=== PATIENT | female | born 1955 | race Caucasian/White ===

== ENCOUNTER 2016-09-25 16:35 | Outpatient (CLI) | payer OTHER ==
[2016-09-25] MEDS ORDERED: GADOBUTROL 7.5 MMOL/7.5 ML VIAL IVP ONE (18:35)
== END 2016-09-25 16:36 | disposition home or self-care (01) ==
DX: R10.11 Right upper quadrant pain (principal)
CPT/HCPCS: 74183; A9585

== ENCOUNTER 2017-01-24 21:03 | Inpatient (IN) | payer OTHER ==
[2017-01-24] MEDS ORDERED: ONDANSETRON 4 MG/2 ML VIAL IVP STA (21:21)
[2017-01-24] MEDS ORDERED: HYDROmorphone 1 MG/ML CARPUJECT IVP STA ×2 (21:21→23:13)
[2017-01-24] MEDS ORDERED: SODIUM CHLORIDE 0.9% 1,000 ML IV ONE (21:21)
--- NOTE | 2017-01-24 21:24 | ED Physician Documentation ---
History of Present Illness - Stated complaint Stated Complaint: CHEST PX - Chief complaint Chief Complaint: Cardiac - Additonal information Additional information: hx from pt 61 female upper abd / chest pain since noon severe feels hot + SOA 2/2 pain nauseated fhx CAD (Dad 50s) and high chol - no HTN DM smoker also has known gallstones dx by MRI last spring no leg swelling meds are HRT, nexium, something for her bladder Review of Systems Constitutional: denies: Fever, Chills, Sweats Cardiac: reports: Chest pain / pressure Respiratory: reports: Dyspnea. denies: Cough GI: reports: Abdominal Pain, Nausea. denies: Vomiting Musculoskeletal: denies: Extremity swelling Endocrine: denies: Easy bruising / bleeding Immunocompromised: denies: Immunocompromised PD PAST MEDICAL HISTORY - Past Medical History Past Medical History: No - Past Surgical History Past Surgical History: Yes /[employer]ELOPMENT: Hysterectomy HEENT: Tonsil/Adenoidectomy - Allergies Allergies/Adverse Reactions: Allergies Allergy/AdvReac Type Severity Reaction Status Date / Time No Known Drug Allergies Allergy Verified 01/24/17 21:14 - Social History Does the pt smoke?: No Smoking Status: Never smoker Does the pt drink ETOH?: No Does the pt have substance abuse?: No - Immunizations Immunizations are current?: Yes - POLST Patient has POLST: No PD ED PE NORMAL - Vitals Vital signs reviewed: Yes - General General: Alert and oriented X 3 - HEENT HEENT: PERRL - Neck Neck: Supple, no meningeal sign - Cardiac Cardiac: RRR - Respiratory Respiratory: No respiratory distress, Clear bilaterally - Abdomen Abdomen: Other (severe ruq TTP with + murphys) - Derm Derm: Normal color - Extremities Extremities: No deformity, No edema, No calf tenderness / cord - Neuro Neuro: Alert and oriented X 3 Results - Vitals Vitals: Vital Signs - 24 hr 01/24/17 21:11 Temperature 36.2 C L Heart Rate 69 Respiratory 24 Rate Blood Pressure 143/99 H O2 Saturation 99 Oxygen O2 Source Room air - EKG (time done) 2113 Rate: Rate (enter#) (68) Rhythm: NSR Cameron: Normal Intervals: Normal KS Ischemia: Non specific changes (diffusely flattened T waves) - Rads (name of study) CXR Radiology: See rad report (NACPD) PD MEDICAL DECISION MAKING - ED course ED course: afebrile, nl WBC, nl LFTs but pain for about 12 hr now and wall thickening on sono spoke to surgeon Dr Pang will will admit to obs labs wont import into my note but were reviewed nl WBC nl LFT neg trop Departure - Departure Disposition: ED Place in Observation Clinical Impression: Cholecystitis Condition: Good
[2017-01-24 21:27] LABS: BASOPHILS # (AUTO) 0.1 10^3/uL (0.0-0.1); BASOPHILS % (AUTO) 0.7 %; EOSINOPHILS # (AUTO) 0.1 10^3/uL (0.0-0.7); EOSINOPHILS % (AUTO) 1.6 %; HCT - HEMATOCRIT 42.5 % (37.0-47.0); HGB - HEMOGLOBIN 14.1 g/dL (12.0-16.0); LYMPHOCYTES # (AUTO) 4.5 10^3/uL (1.5-3.5); LYMPHOCYTES % (AUTO) 49.1 %; MEAN CORPUSCULAR HEMOGLOBIN 28.7 pg (27.0-31.0); MEAN CORPUSCULAR HGB CONC 33.3 g/dL (32.0-36.0); MEAN CORPUSCULAR VOLUME 86.2 fL (81.0-99.0); MEAN PLATELET VOLUME 7.3 fL (7.9-10.8); MONOCYTES # (AUTO) 0.6 10^3/uL (0.0-1.0); MONOCYTES % (AUTO) 6.5 %; NEUTROPHILS # (AUTO) 3.9 10^3/uL (1.5-6.6); NEUTROPHILS % (AUTO) 42.1 %; NUCLEATED RED BLOOD CELLS AUTO 0.1 /100WBC; RED BLOOD COUNT 4.93 10^6/uL (4.20-5.40); RED CELL DISTRIBUTION WIDTH 13.6 % (12.0-15.0); UNCORRECTED WHITE BLOOD COUNT 9.3 x10^3/uL; WHITE BLOOD COUNT 9.3 x10^3/uL (4.8-10.8)
[2017-01-24] MEDS ORDERED: HYDROmorphone 1 MG/ML CARPUJECT ONE ×2 (21:32→23:12)
[2017-01-24] MEDS ORDERED: ONDANSETRON 4 MG/2 ML VIAL ONE (21:32)
[2017-01-24 21:37] LABS: ALBUMIN/GLOBULIN RATIO 1.2 (1.0-2.2); BILIRUBIN,TOTAL 0.3 mg/dL (0.2-1.0); CALCIUM 9.5 mg/dL (8.5-10.3); POTASSIUM 3.7 mmol/L (3.5-5.0); TOTAL PROTEIN 7.8 g/dL (6.7-8.2)
--- NOTE | 2017-01-24 22:22 | XRAY Preliminary Report ---
Exam: XR Chest 1 View IMPRESSION: Normal single view chest. [facility] SITE ID: [id number]
--- NOTE | 2017-01-24 22:24 | XRAY Report ---
EXAM: CHEST RADIOGRAPHY EXAM DATE: 01/24/2017 09:56 PM. CLINICAL HISTORY: Chest pain. COMPARISON: None. TECHNIQUE: 1 view. FINDINGS: Lungs/Pleura: No focal opacities evident. No pleural effusion. No pneumothorax. Mediastinum: Within exam limitations, cardiomediastinal contour is normal. Other: None. IMPRESSION: Normal single view chest. [facility] Referring Provider Line: [phone] SITE ID: [id number]
--- NOTE | 2017-01-24 23:13 | Ultrasound Preliminary Report ---
Exam: US Abdomen Limited IMPRESSION: 1. Multiple mobile stones in the gallbladder with borderline wall thickness and focal tenderness. Ear ly cholecystitis is not entirely excluded. 2. No biliary dilatation seen. 3. Possible fatty liver. [facility] SITE ID: [id number]
--- NOTE | 2017-01-24 23:15 | Ultrasound Report ---
EXAM: ABDOMEN ULTRASOUND LIMITED, RUQ EXAM DATE: 01/24/2017 10:52 PM. CLINICAL HISTORY: Right upper quadrant pain. COMPARISON: None. TECHNIQUE: Real-time scanning was performed with static images obtained. FINDINGS: Liver: Mildly echogenic. Possible left lobe cyst measuring 6 x 5 x 6 mm. 13.7 cm. Main portal vein fl ow: Hepatopetal. Gallbladder: There are multiple mobile stones in the gallbladder. Wall thickness is upper normal at 3 mm. There is focal tenderness over the gallbladder. Biliary System: CBD measures 4.4 mm. No intrahepatic or extrahepatic ductal dilatation. Other: Right kidney measures 9.1 cm and appears normal. Pancreas is poorly seen. Visualized portions appear normal. IMPRESSION: 1. Multiple mobile stones in the gallbladder with borderline wall thickness and focal tenderness. Ear ly cholecystitis is not entirely excluded. 2. No biliary dilatation seen. 3. Possible fatty liver. [facility] Referring Provider Line: [phone] SITE ID: [id number]
[2017-01-24] MEDS ORDERED: SODIUM CHLORIDE FLUSH 0.9% 10 ML SYRINGE IVP ONE (23:21)
[2017-01-24] MEDS ORDERED: PIPERACILLIN/TAZOBACTAM 3.375 GM in SODIUM CHLORIDE 0.9% MINIBAG 100 ML IV STA (23:24)
[2017-01-24] MEDS ORDERED: ONDANSETRON 4 MG/2 ML VIAL IVP PRN (23:32)
[2017-01-25] MEDS: LACTATED RINGERS 1,000 ML IV SCH ×3 (00:57→23:52)
[2017-01-25] MEDS: SODIUM CHLORIDE FLUSH 0.9% 10 ML SYRINGE IVP PRN ×3 (00:58→23:52)
[2017-01-25] MEDS: AMPICILLIN/SULBACTAM 3 GM in SODIUM CHLORIDE 0.9% MINIBAG 100 ML IV SCH ×5 (00:58→23:51)
[2017-01-25] MEDS: MORPHINE 2 MG/ML SYRINGE IVP PRN ×5 (03:52→23:52)
[2017-01-25] MEDS: PANTOPRAZOLE 40 MG TABLET PO SCH (06:04)
[2017-01-25] MEDS: SODIUM CHLORIDE FLUSH 0.9% 10 ML SYRINGE IVP SCH ×3 (06:04→18:22)
--- NOTE | 2017-01-25 10:08 | HISTORY & PHYSICAL EXAMINATION ---
DATE OF ADMISSION: 01/24/2017 REASON FOR CONSULTATION: Acute cholecystitis. HISTORY OF PRESENT ILLNESS: This is a 61-year-old female who presented to the emergency department ye sterday with complaints of bilateral epigastric pain, nausea and vomiting. She states that this pain initially began on Saturday and progressively got worse throughout the week, became associated with the inability to take p.o., and nausea and vomiting. She states that she had similar less severe episode s approximately 2 months ago and imaging of the abdomen was performed which only demonstrated gallsto donald. On evaluation in the emergency department, lab workup was performed, which demonstrated a normal white blood cell count and normal LFTs. Additionally, an ultrasound of the abdomen was performed whi ch demonstrated mild gallbladder wall thickening with multiple stones in the gallbladder and focal te nderness concerning for possible early cholecystitis. There was no biliary dilatation seen. A surgica l consultation was obtained. Upon my evaluation of the patient, she states that she is continuing to have mild to moderate epigastric pain, worse on the right side. PAST MEDICAL HISTORY: Significant for anxiety, migraines, overactive bladder. PAST SURGICAL HISTORY: Laparoscopic hysterectomy. SOCIAL HISTORY: The patient is . She does not smoke. She does not drink. HOME MEDICATIONS: Not available to me as the patient is unsure of her home medication list, but she s tates that she does not take any blood thinners including aspirin, Plavix or Coumadin. She does take propranolol for her migraines. She denies any history of diabetes. PHYSICAL EXAMINATION: VITAL SIGNS: Temperature is 36.9, blood pressure 104/47, heart rate is 70, respiratory rate 16, O2 sa t is 95% on room air. GENERAL: She is awake, alert, oriented x3, in no acute distress. She is slightly obese. CARDIOVASCULAR: Regular rate and rhythm. CHEST: Clear to auscultation bilaterally with no rhonchi or wheezing. ABDOMEN: Soft and nondistended, with tenderness to palpation in the right upper quadrant with no guar ding and no rigidity. EXTREMITIES: Nonedematous. LABORATORY VALUES: Sodium 138, potassium 3.7, chloride 102, bicarbonate 28, BUN 13, creatinine 1.0. T otal bilirubin 0.3, AST 19, ALT 19, alkaline phosphatase 89, lipase 49. White blood cell count 9.3, h emoglobin 14.1, hematocrit 42.5, platelets 356. ASSESSMENT: This is a 61-year-old female with biliary colic versus acute cholecystitis. PLAN: The patient will be admitted to the surgical service under observation. If her pain fails to im prove, she will be taken to the operating room for laparoscopic cholecystectomy. In the interim, she will be kept n.p.o., placed on IV fluids and IV antibiotics. The procedure was explained to the patie nt in detail including the potential risks involved including, but not limited to bleeding, infection , damage to intraabdominal structures, specifically including her small bowel, or her common bile mandeep t. She understands all the above risks and agrees to proceed with surgery. JOB #: [id number] EXT JOB #:[id number]
[2017-01-25] MEDS: POLYETHYLENE GLYCOL 3350 17 GM PACKET PO SCH (10:53)
[2017-01-25] MEDS ORDERED: BUPIVACAINE 0.5%-EPI 1:200000 PF 30 ML VIAL SUBQ ONE ×2 (14:53→16:58)
[2017-01-25] MEDS ORDERED: LACTATED RINGERS 1,000 ML IV ONE ×2 (14:53)
[2017-01-25] MEDS ORDERED: MIDAZOLAM 2 MG/2 ML VIAL IVP ONE (16:15)
[2017-01-25] MEDS ORDERED: ROCURONIUM 50 MG/5 ML VIAL IVP ONE (16:15)
[2017-01-25] MEDS ORDERED: PROPOFOL 200 MG/20 ML VIAL IVP ONE (16:15)
[2017-01-25] MEDS ORDERED: fentaNYL 100 MCG/2 ML VIAL IVP ONE (16:15)
[2017-01-25] MEDS ORDERED: ONDANSETRON 4 MG/2 ML VIAL IVP ONE (16:15)
[2017-01-25] MEDS ORDERED: SUCCINYLCHOLINE 200 MG/10 ML VIAL IVP ONE (16:15)
[2017-01-25] MEDS ORDERED: ceFAZolin 1 GM VIAL IV ONE (16:15)
[2017-01-25] MEDS ORDERED: LIDOCAINE-PF 2% 10 ML AMP SUBQ ONE (16:15)
[2017-01-25] MEDS ORDERED: DEXAMETHASONE 4 MG/ML VIAL IVP ONE (16:15)
[2017-01-25] MEDS ORDERED: oxyCOD/ACETAMIN 5 MG/325 MG TABLET PO PRN (17:22)
[2017-01-26] MEDS: LACTATED RINGERS 1,000 ML IV SCH (04:19)
[2017-01-26] MEDS: AMPICILLIN/SULBACTAM 3 GM in SODIUM CHLORIDE 0.9% MINIBAG 100 ML IV SCH (06:23)
[2017-01-26] MEDS: PANTOPRAZOLE 40 MG TABLET PO SCH (06:23)
[2017-01-26] MEDS: SODIUM CHLORIDE FLUSH 0.9% 10 ML SYRINGE IVP SCH (06:24)
[2017-01-26] MEDS: POLYETHYLENE GLYCOL 3350 17 GM PACKET PO SCH (10:02)
--- NOTE | 2017-01-26 10:29 | Discharge Plan ---
Discharge Plan Disposition: 01 Home, Self Care Condition: Good Diet: Regular Activity Restrictions: No Restrictions No Smoking: If you smoke, Please STOP! Call for help. Follow-up with: HARJIT DELVALLE MD [Provider Admit Priv/Credential] -
[2017-01-26 11:58] VITALS: BP 112/66
--- NOTE | 2017-01-27 12:17 | DISCHARGE SUMMARY ---
DATE OF ADMISSION: 01/25/2017 DATE OF DISCHARGE: 01/26/2017 REASON FOR ADMISSION: Acute cholecystitis. HISTORY OF PRESENT ILLNESS: This is a 61-year-old female who presented to the emergency department wi th a 1 week complaint of abdominal pain. On workup in the emergency department, she was noted to have acute cholecystitis. She was subsequently admitted to the surgical service and placed on IV antibiot ics. The following day she was taken to the operating room for a laparoscopic cholecystectomy, which went uneventfully; however, she was noted to have a grossly infected gallbladder. She was subsequentl y taken back to the floor postoperatively and started on a regular diet and kept on IV antibiotics. T he following morning she was tolerating a diet, and her pain was well controlled. She developed no fe vers overnight, and patient was noted to be stable for discharge home. She was discharged with a pres cription for Percocet for pain medication and instructions on how to care for her wound and how to ca re for herself postoperatively. Additionally, she was instructed to follow up with me in the office i n 2-4 weeks. I also indicated that she should follow up sooner should she have any increasing abdomin al pain, persistent nausea and vomiting, fever, chills, redness around the incision or drainage from the incision. She displayed an understanding of all of the above. CONDITION ON DISCHARGE: Stable. DISCHARGE DISPOSITION: Her discharge was to home. JOB #: [id number] EXT JOB #:[id number]
--- NOTE | 2017-02-04 10:50 | PROVIDER PROGRESS NOTE ---
Subjective - General Admit Date: 01/25/17 Procedure Performed: lap shanti - Review of Systems Wound/Incisions: positive: Healing well, No drainage General: positive: No symptoms Pulmonary: positive: No symptoms Cardiovascular: positive: No symptoms Gastrointestinal: positive: No symptoms. negative: Nausea, Vomiting, Abdominal pain Genitourinary: positive: No symptoms Psychiatric: positive: No symptoms Objective - Patient Data Reviewed Vital Signs: Yes - Lab Results Lab Results: 01/24/17 21:15 01/24/17 21:15 - Physical Exam Wound/Incisions: positive: Healing well Respiratory: positive: No respiratory distress Cardiovascular: positive: Regular rate & rhythm Abdomen: positive: Other (incisions CDI. abdomen soft and non-distended) Neurologic/Psychiatric: positive: Oriented x3 Impression/Plan - Problem List Problem List: this note is to reflect progress note for 01/26/2017 s/p lap shanti advance diet as tolerated discharge to home
--- NOTE | 2017-02-15 03:21 | OPERATIVE REPORT ---
DATE OF SURGERY: 01/25/2017 00:00:00 SURGEON: Thelma Carpenter MD. PREOPERATIVE DIAGNOSIS: Biliary colic/acute cholecystitis. POSTOPERATIVE DIAGNOSIS: Acute cholecystitis. PROCEDURE: PERFORMED: Laparoscopic cholecystectomy. FINDINGS: After obtaining informed consent from the patient, she was brought into the operating room and positioned on the operating table in a supine position, taking note of pressure points. She was i ntubated by Anesthesia. She was prepped and draped in the usual sterile fashion. Perioperative antibi otics were administered. A time-out was taken according to protocol. An infraumbilical 1 cm incision was created and deepened down to the umbilical stalk. This was grasped, elevated, and a Veress needle inserted. The abdominal cavity was insufflated. A 5 mm incision was created to the right of the epig astric region and Optiview trocar inserted at this site under direct visualization. The Veress needle was then exchanged for a 12 mm port. Two additional right-sided 5 mm ports were placed. The gallblad renzo was grasped and retracted over the dome of the liver. It was noted to be inflamed with omentum st uck to the anterior surface. This was taken down with a combination of blunt dissection and electroca utery. The base of the gallbladder was grasped and retracted medially exposing the lateral attachment s. These were divided with the hook cautery. I worked my way anteriorly and then medially. The cystic duct was then circumferentially from surrounding tissue and exposed fully. The cystic james ry was similarly dissected out. The base of the gallbladder was transected off of the liver bed and t he critical view was obtained. Two clips were placed on the cystic duct proximally, 1 distally, and i t was divided. The cystic artery was divided in a similar manner. The gallbladder was then transected from the gallbladder fossa with electrocautery. There was no spillage of bile or stones during this process. The gallbladder was then placed in a specimen bag and removed through the umbilical port. Th e gallbladder fossa was then inspected for signs of bleeding and none were noted. The umbilical port site was then closed with a Walt-Cam device using a 0 Vicryl suture. The abdominal cavity was desufflated. All instruments removed. The skin incisions were closed with 4-0 Monocryl. Dermabond was applied. The patient was extubated and taken to the recovery room in stable condition. ESTIMATED BLOOD LOSS: 5 mL. COMPLICATIONS: None. SPECIMEN: Gallbladder. JOB #: [id number] EXT JOB #:[id number]
== END 2017-01-26 11:55 | disposition home or self-care (01) | DRG 419 ==
LOC: ED 21:03 → OBS 21:13 → OBSVTOIN 01-25 17:20 → MS2 01-25 19:53
PROVIDERS: ADMIT Surgery; ATTEND Surgery
PROC: 0FT44ZZ Resection of Gallbladder, Percutaneous Endoscopic Approach (ICD-10-PCS; principal; 2017-01-25 15:00)
DX: K80.00 Calculus of gallbladder with acute cholecystitis without obstruction (principal); G43.909 Migraine, unspecified, not intractable, without status migrainosus; F41.9 Anxiety disorder, unspecified; Z79.899 Other long term (current) drug therapy
CPT/HCPCS: 36415; 71010; 76705; 80053; 83690; 84484; 85025; 88304; 93005; 96361; 96365; 96366; 96374; 96375; 96376; 99283; 99284